=== PATIENT | female | born 1940 | race Caucasian/White ===

== ENCOUNTER 2016-07-24 04:54 | Emergency (ER) | payer MEDICARE, OTHER ==
--- NOTE | 2016-07-24 19:33 | ER ---
ADMIT: 07/24/2016 RM/LOC: ER [facility] MR#: [id number] [address] [id number] [place] [address] Emergency Room Report SEX: F AGE: 76 : 1940 DATE: 07/24/2016 HISTORY OF PRESENT ILLNESS: The patient is a 76-year-old female with a past medical history of arthritis who came to the ER with chief complaint of a week of nasal congestion, sore throat, and cough. The patient has been seen in the office and is receiving antibiotics for this problem and states that the runny nose and sinus drainage is bothering her. She prefers to be ready for her daughter's wedding tomorrow. PHYSICAL EXAMINATION: In the ER, the patient was afebrile. The patient had clear rhinorrhea and the nose was congested. There is erythema in the oropharynx without exudate. There is no stridor. There is muffling sound. Trachea is midline. Lungs are clear bilaterally. The rest of the physical exam is noncontributory and normal. EMERGENCY DEPARTMENT COURSE: The patient received albuterol nebulizer, and also pseudoephedrine p.o. which per patient is controlling secretions significantly. The patient is stable to be discharged home with return precautions. DIAGNOSIS: Upper respiratory infection and follow up with the primary doctor as needed. Juan Love MD/ radha JOB #: [id number] CC: Juan Love MD, Attending Physician Wild Chacko MD, Family Physician
== END 2016-07-24 06:17 | disposition home or self-care (01) ==
LOC: ER 04:54
DX: J06.9 Acute upper respiratory infection, unspecified (principal)